=== PATIENT | female | born 1970 | race Hispanic/Latino ===

== ENCOUNTER 2021-03-19 05:30 | Observation (INO) | payer OTHER ==
[2021-03-18 13:01] LABS: BASOPHILS % (AUTO) 0.3 % (0.0-5.0); EOSINOPHILS % (AUTO) 0.7 % (0.0-8.0); HEMATOCRIT 41.6 % (36-48); LYMPHOCYTES % (AUTO) 22.2 % (21.0-51.0); MEAN CORPUSCULAR HGB CONC 32.9 g/dL (32.0-36.0); MONOCYTES % (AUTO) 4.8 % (3.0-13.0); NEUTROPHILS % (AUTO) 71.9 % (40.0-77.0); PLATELET COUNT (AUTO) 266 K/uL (130-400); RED BLOOD CELL COUNT(AUTO) 4.57 MIL/uL (4.00-5.50); RED CELL DISTRIBUTION WIDTH 13.8 % (11.0-15.5); WHITE BLOOD COUNT (AUTO) 7.1 K/uL (4.8-10.8)
[2021-03-18 13:24] VITALS: BP 145/90
[~2021-03-19] VITALS: Ht 154.9 cm; Wt 76.3 kg
[2021-03-19] VITALS (23 sets, daily range): BP systolic 105–169; BP diastolic 60–99
[~2021-03-19 05:30] MED LIST: IRON-23 PO; ORAL CONTRACEPTIVE PO
[2021-03-19] MEDS ORDERED: CEFAZOLIN 3GM /D5W 100ML 100 ML IV SCH (06:00)
[2021-03-19] MEDS: LACTATED RINGERS 1000ML 1,000 ML IV SCH ×3 (07:55→09:17)
[2021-03-19] MEDS: CEFAZOLIN SODIUM 1 GM VIAL ONE ×2 (07:55→08:14)
[2021-03-19] MEDS ORDERED: PROPOFOL 10 MG/ML 20ML VIAL IV ONE (07:56)
[2021-03-19] MEDS ORDERED: MIDAZOLAM HCL 1 MG/ML 2ML VIAL ONE (07:56)
[2021-03-19] MEDS ORDERED: FENTANYL CITRATE PF 50 MCG/1 ML 2ML VIAL ONE (07:57)
[2021-03-19] MEDS ORDERED: ROCURONIUM 10MG/1ML SYR 10 MG/ML ML ONE (07:57)
[2021-03-19] MEDS ORDERED: GLYCOPYRROLATE 1 MG/5 ML SYRINGE ONE (09:02)
[2021-03-19] MEDS ORDERED: DEXAMETHASONE SOD PHOSPHATE 10MG/ML 1ML VIAL ONE (09:02)
[2021-03-19] MEDS ORDERED: NEOSTIGMINE 5MG/5ML SYR IV ONE (09:02)
[2021-03-19] MEDS ORDERED: ONDANSETRON HCL 4 MG/2 ML VIAL ONE (09:03)
[2021-03-19] MEDS ORDERED: MEPERIDINE-PF 25 MG/ML SYG ONE ×2 (09:33→09:44)
[2021-03-19] MEDS ORDERED: IBUPROFEN 600 MG TABLET PO PRN (10:30)
[2021-03-19] MEDS ORDERED: ACETAMINOPHEN-CODEINE 300/30MG TAB PO PRN (10:30)
[2021-03-19] MEDS ORDERED: ONDANSETRON HCL 4 MG/2 ML VIAL IVP PRN (10:30)
[2021-03-19] MEDS ORDERED: PROMETHAZINE HCL 25 MG/ML 1ML AMPULE IM PRN (10:30)
[2021-03-19] MEDS ORDERED: BISACODYL 10 MG SUPP.RECT RC PRN (10:30)
[2021-03-19] MEDS: PROMETHAZINE HCL 25 MG/ML 1ML AMPULE IM PRN ×2 (11:01→15:54)
[2021-03-19] MEDS: MEPERIDINE-PF 75 MG/ML SYG IM PRN ×2 (11:12→15:56)
[2021-03-19] MEDS: DEXTROSE 5 %-0.45 % NACL 1,000 ML IV PRN ×2 (12:53→18:17)
[2021-03-19] MEDS: SIMETHICONE 80 MG TAB.CHEW PO PRN (21:22)
[2021-03-19] MEDS: DOCUSATE SODIUM 100 MG CAP PO PRN (21:22)
[2021-03-20] VITALS: BP 162/84
[2021-03-20] MEDS: DEXTROSE 5 %-0.45 % NACL 1,000 ML IV PRN (02:15)
[2021-03-20 03:47] VITALS: BP 140/87
[2021-03-20 05:27] LABS: HEMATOCRIT 39.9 % (36-48); MEAN CORPUSCULAR HGB CONC 33.3 g/dL (32.0-36.0); MEAN CORPUSCULAR VOLUME 90.1 fL (79-99); RED BLOOD CELL COUNT(AUTO) 4.43 MIL/uL (4.00-5.50); RED CELL DISTRIBUTION WIDTH 13.2 % (11.0-15.5); WHITE BLOOD COUNT (AUTO) 13.4 K/uL (4.8-10.8)
[2021-03-20 07:15] VITALS: BP 141/82
[2021-03-20] MEDS: DOCUSATE SODIUM 100 MG CAP PO PRN (08:21)
[2021-03-20] MEDS: SIMETHICONE 80 MG TAB.CHEW PO PRN (08:21)
[2021-03-20] MEDS ORDERED: IBUPROFEN 800 MG TAB PO PRN (08:30)
[2021-03-20] MEDS ORDERED: HYDROCODONE/ACETAMINOPHEN 5/325 MG TAB PO PRN (08:30)
[2021-03-20] MEDS: ACETAMINOPHEN-CODEINE 300/30MG TAB PO PRN ×2 (09:26→14:44)
[2021-03-20 11:35] VITALS: BP 156/88
[2021-03-20] MEDS ORDERED: ACET1TAB25 PO (15:11)
[2021-03-20 15:20] VITALS: BP 135/79
== END 2021-03-20 15:50 | disposition home or self-care (01) ==
LOC: DAH 05:30 → WSH 05:31 → DAH 05:31 → WSH 10:25
PROVIDERS: ADMIT Obstetrics & Gynecology; ATTEND Obstetrics & Gynecology
DX: D25.9 Leiomyoma of uterus, unspecified (principal); Z20.822 Contact with and (suspected) exposure to COVID-19; N92.1 Excessive and frequent menstruation with irregular cycle; K46.9 Unspecified abdominal hernia without obstruction or gangrene; D50.0 Iron deficiency anemia secondary to blood loss (chronic)
CPT/HCPCS: 36415 ×2; 58263; 84703; 85027; 85025; 86850; 86900; 86901; 96360; 96361 ×2; 96372; A4215; A4216; A4221; A4222; A4223 ×2; A4335; A4351; A4510; A4600; A4606; A4663; A4930; A6260; C9803; G0378 ×32; J0690; J1100; J2175 ×4; J2250; J2405; J2550 ×2; J2704; J2710; J3010; J3490; J7120 ×2; U0003